=== PATIENT | female | born 1990 | race African-American/Black ===

== ENCOUNTER 2018-11-22 13:32 | Emergency (ER) | payer OTHER ==
--- NOTE | 2018-11-22 13:54 | RAD ---
EXAM: Right foot: 3 views INDICATIONS: Injury to right foot COMPARISON: None. FINDINGS: Tarsals appear unremarkable. Metatarsals and phalanges appear intact. MTP and IP joints unr emarkable. IMPRESSION: No acute finding
[2018-11-22] MEDS ORDERED: Ibuprofen 800 MG TAB ONE (14:16)
== END 2018-11-22 14:35 | disposition home or self-care (01) ==
LOC: ERS 13:32
DX: S90.31XA Contusion of right foot, initial encounter (principal); Z79.899 Other long term (current) drug therapy; W19.XXXA Unspecified fall, initial encounter

== ENCOUNTER 2023-06-30 00:01 | Inpatient (IN) | payer OTHER ==
[2023-06-30] MEDS ORDERED: Metoprolol Tartrate 5 MG/5 ML VIAL ONE (01:01)
[2023-06-30 01:26] LABS: #Monocytes 0.5 thou/uL (0.11-0.59); #Neutrophils 5.3 thou/uL (1.40-6.50); %Basophils 0.2 % (0.0-1.0); %Eosinophils 0.2 % (0.0-10.0); %Lymphocytes 9.2 % (21.0-51.0); %Monocytes 8.3 % (0.0-10.0); %Neutrophils 81.8 % (42.0-75.0); Hematocrit 37.1 % (36.0-47.0); Hemoglobin 12.4 g/dL (12.0-16.0); Mean Corpuscular HGB CONC 33.4 g/dL (32.0-36.0); Mean Corpuscular Hemoglobin 31.2 pg (27.0-31.0); Mean Corpuscular Volume 93.2 fl (78.0-98.0); Mean Platelet Volume 10.1 fL (7.4-10.4); Platelet Count 275 10x3/uL (130-400); RBC Distribution Width 13.3 % (11.5-14.5); Red Blood Cell (RBC) Count 3.98 mill/uL (4.20-5.40); White Blood Cell (WBC) Count 6.4 10x3/uL (4.8-10.8)
[2023-06-30 01:37] LABS: BHCG - Serum Negative (NEGATIVE); Pregs Control Background? CLEAR/WHITE (CLR/WHITE); Pregs Control Bar Appear? YES (CONTROL BAR)
[2023-06-30 01:41] LABS: ALT (SGPT) 7 U/L (8-55); AST (SGOT) 11 U/L (5-34); Albumin 3.5 g/dL (3.5-5.0); Alkaline Phosphatase 69 U/L (40-110); Anion Gap 11 mmol/L (10-20); BUN (Urea Nitrogen) 5 mg/dL (7.0-18.7); Bilirubin, Total 0.2 mg/dL (0.2-1.2); Calc. Creatinine Clearance 0 mL/min (70-130); Calcium 8.2 mg/dL (7.8-10.44); Carbon Dioxide 22 mmol/L (22-29); Chloride 108 mmol/L (98-107); Estimated GFR 105; Glucose 85 mg/dL (70-105); Potassium 3.1 mmol/L (3.5-5.1); Protein, Total 6.5 g/dL (6.0-8.3); Sodium 138 mmol/L (136-145)
[2023-06-30 01:45] LABS: Troponin I Less than 0.010 ng/mL (< 0.028)
[2023-06-30] MEDS ORDERED: Ondansetron PF 4 MG/2 ML Vial IVP PRN (02:34)
[2023-06-30 02:37] VITALS: BMI 40.1
[2023-06-30] MEDS ORDERED: Potassium Chloride 20 MEQ TAB PO SCH (02:45)
[2023-06-30 02:54] LABS: Magnesium 1.7 mg/dL (1.6-2.6)
[2023-06-30] MEDS ORDERED: Magnesium 2 GM/50 ML(in water) 2 GM in Premix 1 BAG IVPB SCH (03:15)
[2023-06-30] MEDS ORDERED: Metoprolol Tartrate 25 MG TAB PO SCH (03:30)
[2023-06-30] MEDS ORDERED: Ketorolac Tromethamine 30 MG/ML VIAL IVP SCH (03:30)
[2023-06-30] MEDS: Sodium Chloride 0.9% 1,000 ML IV SCH ×3 (03:43→22:58)
[2023-06-30] MEDS: dilTIAZem 125 MG in Sodium Chloride 0.9% 100 ML IVPB SCH ×3 (03:54→21:06)
[2023-06-30 04:21] LABS: Amphetamine Not Detected (NotDetected); Barbiturates Screen Not Detected (NotDetected); Benzodiazepine Screen Not Detected (NotDetected); Cocaine Metabolite Screen Not Detected (NotDetected); Methadone Not Detected (NotDetected); Methamphetamine Not Detected (NotDetected); Opiate Screen Not Detected (NotDetected); Oxycodone Screen Not Detected (NotDetected); Phencyclidine (PCP) Not Detected (NotDetected); THC/Cannabinoid Screen Not Detected (NotDetected); Tricyclic Screen Not Detected (NotDetected)
[2023-06-30] MEDS: Acetaminophen 325 MG TAB PO PRN ×2 (08:51→15:32)
[2023-06-30] MEDS: Oseltamivir 75 MG CAP PO SCH ×2 (08:51→20:18)
[2023-06-30] MEDS: Metoprolol Tartrate 25 MG TAB PO SCH (20:18)
[2023-07-01] MEDS: Acetaminophen 325 MG TAB PO PRN (02:30)
[2023-07-01] MEDS: dilTIAZem 125 MG in Sodium Chloride 0.9% 100 ML IVPB SCH (06:00)
[2023-07-01 07:12] LABS: Anion Gap 13 mmol/L (10-20); BUN (Urea Nitrogen) 5 mg/dL (7.0-18.7); Calc. Creatinine Clearance 190 mL/min (70-130); Calcium 8.1 mg/dL (7.8-10.44); Carbon Dioxide 14 mmol/L (22-29); Chloride 114 mmol/L (98-107); Estimated GFR 112; Glucose 83 mg/dL (70-105); Magnesium 2.1 mg/dL (1.6-2.6); Sodium 137 mmol/L (136-145)
[2023-07-01 07:18] LABS: #Monocytes 0.4 thou/uL (0.11-0.59); %Eosinophils 0.7 % (0.0-10.0); %Lymphocytes 48.4 % (21.0-51.0); %Monocytes 15.4 % (0.0-10.0); %Neutrophils 35.5 % (42.0-75.0); Hematocrit 43.2 % (36.0-47.0); Hemoglobin 13.5 g/dL (12.0-16.0); Mean Corpuscular HGB CONC 31.3 g/dL (32.0-36.0); Mean Corpuscular Hemoglobin 31.3 pg (27.0-31.0); Platelet Count 216 10x3/uL (130-400); RBC Distribution Width 13.9 % (11.5-14.5); Red Blood Cell (RBC) Count 4.32 mill/uL (4.20-5.40); White Blood Cell (WBC) Count 2.9 10x3/uL (4.8-10.8)
[2023-07-01] MEDS: Oseltamivir 75 MG CAP PO SCH (09:08)
[2023-07-01] MEDS: Metoprolol Tartrate 25 MG TAB PO SCH (09:08)
[2023-07-01] MEDS: Sodium Chloride 0.9% 1,000 ML IV SCH (10:10)
[2023-07-01 12:31] VITALS: BP 111/68; TEMP 98.1
== END 2023-07-01 14:00 | disposition home or self-care (01) | DRG 194 ==
LOC: ERS 00:01 → 2SW 01:05
PROVIDERS: ADMIT Internal Medicine; ATTEND Internal Medicine
DX: J10.1 Influenza due to other identified influenza virus with other respiratory manifestations (principal); I47.10 Supraventricular tachycardia, unspecified; Z68.41 Body mass index [BMI] 40.0-44.9, adult; F41.9 Anxiety disorder, unspecified; E87.6 Hypokalemia; E66.9 Obesity, unspecified; J44.9 Chronic obstructive pulmonary disease, unspecified; I10 Essential (primary) hypertension; Z82.49 Family history of ischemic heart disease and other diseases of the circulatory system
CPT/HCPCS: 36415; 80048; 80053; 80306; 83735; 84484; 84703; 85025; 93005; 93306; 96374; J1885; J3475; J3490; J7050